=== PATIENT | female | born 1980 | race Caucasian/White ===

== ENCOUNTER 2023-08-29 10:54 | Emergency (ER) | payer OTHER ==
[~2023-08-29] VITALS: Ht 165.1 cm; Wt 79.4 kg
[2023-08-29 11:19] VITALS: BP 138/74; PULSE 72; RESP 18; TEMP 98.2; O2SAT 97
[2023-08-29] MEDS ORDERED: CITA20TA15 PO (11:53)
[2023-08-29 12:03] VITALS: PULSE 72
== END 2023-08-29 12:03 | disposition home or self-care (01) ==
LOC: MED 10:54
DX: F41.9 Anxiety disorder, unspecified (principal); Z76.0 Encounter for issue of repeat prescription; Z79.899 Other long term (current) drug therapy
CPT/HCPCS: 99281